=== PATIENT | male | born 1990 | race Hispanic/Latino ===

== ENCOUNTER 2019-02-26 21:04 | Emergency (ER) | payer OTHER ==
[2019-02-26] MEDS ORDERED: ONDANSETRON ODT 4 MG TAB ONE (21:20)
[2019-02-26 22:03] LABS: APPEARANCE,URINE Cloudy (CLEAR); BILIRUBIN,URINE Small (NEGATIVE); COLOR,URINE Dark Yellow (YELLOW); GLUCOSE, URINE (UA) Negative (NEGATIVE); KETONES,URINE 40 mg/dL (NEGATIVE); LEUKOCYTE ESTERASE ,URINE Moderate (NEGATIVE); NITRATE,URINE Negative (NEGATIVE); OCCULT BLOOD,URINE Small (NEGATIVE); PH,URINE 5.5 (5.0-8.0); PROTEIN,URINE POS 1+ mg/dL (NEGATIVE)
[2019-02-26 22:07] LABS: HCG,QUAL RESULT NEGATIVE (NEGATIVE)
[2019-02-26] MEDS ORDERED: LIDOCAINE HCL-MPF 1% 2ML VIAL ONE (22:37)
[2019-02-26] MEDS ORDERED: CEFTRIAXONE SODIUM 1 GM ONE (22:37)
[2019-02-26 22:45] LABS: AMORPHOUS SEDIMENT,UR Few /LPF (None Seen); BACTERIA,URINE Moderate /HPF (None Seen); MUCUS,URINE Many LPF (None Seen); SQUAMOUS EPITHELIAL CELL,UR Many /HPF (0-2)
== END 2019-02-26 22:54 | disposition home or self-care (01) ==
LOC: EDH 21:04
DX: J06.9 Acute upper respiratory infection, unspecified (principal); N39.0 Urinary tract infection, site not specified; R11.10 Vomiting, unspecified
CPT/HCPCS: 81001; 81025; 87088; 87804 ×2; 96372; 99284; J0696; J3490